=== PATIENT | female | born 1990 | race Caucasian/White ===

== ENCOUNTER 2023-01-19 19:40 | Emergency (ER) | payer MEDICAID ==
[~2023-01-19] VITALS: Ht 170.2 cm; Wt 72.6 kg
[2023-01-19 20:00] VITALS: BP 121/81; PULSE 95; RESP 17; TEMP 98.3; O2SAT 97
[2023-01-19 22:26] LABS: APPEARANCE,URINE CLEAR (CLEAR); BILIRUBIN,URINE NEGATIVE (NEGATIVE); BLOOD, URINE NEGATIVE (NEGATIVE); COLOR,URINE YELLOW (YELLOW); LEUKOCYTE ESTERASE ,URINE NEGATIVE (NEGATIVE); NITRITE, URINE NEGATIVE (NEGATIVE); PROTEIN,URINE TRACE (NEGATIVE); UGLUCOSE NEGATIVE (NEGATIVE); UROBILINOGEN,URINE 0.2 EU/dL (0.2 - 1)
[2023-01-19] MEDS ORDERED: NACL 0.9% 1,000 ML IV ONE (22:30)
[2023-01-19] MEDS ORDERED: ONDANSETRON 4 MG/2 ML VIAL IVP ONE (22:30)
[2023-01-19] MEDS ORDERED: KETOROLAC 30 MG/ML VIAL IVP ONE (22:30)
[2023-01-20] MEDS ORDERED: ONDANSETRON 4 MG ODT PO ONE (00:15)
[2023-01-20] MEDS ORDERED: ONDA-188 SL (00:24)
== END 2023-01-20 00:29 | disposition home or self-care (01) ==
LOC: MED 19:40
DX: A05.9 Bacterial foodborne intoxication, unspecified (principal); Z79.899 Other long term (current) drug therapy
CPT/HCPCS: 81003; 81025; 96361; 96374; 96375; 99284; J1885; J2405; Q0162